=== PATIENT | male | born 1995 | race Two or more races ===

== ENCOUNTER 2020-11-19 12:26 | Emergency (ER) | payer MEDICAID, OTHER ==
[~2020-11-19] VITALS: Ht 185.4 cm; Wt 70.0 kg
[2020-11-19] MEDS ORDERED: KETOROLAC 60MG/2ML VIAL IM ONE (13:00)
[2020-11-19 13:27] LABS: HEMOGLOBIN. 14.9 g/dL (14.0-18.0); MEAN CORPUSCULAR HEMOGLOBIN 30.2 pg (28.0-32.0); MEAN CORPUSCULAR VOLUME 89.5 fL (80.0-94.0); MEAN PLATELET VOLUME 6.9 fl (7.4-10.4); PLATELET 298 x1000/uL (130-400); RED BLOOD CELL COUNT 4.92 mill/uL (4.7-6.1); RED CELL DISTRIBUTION WIDTH 13.5 % (11.6-14.6)
[2020-11-19] MEDS ORDERED: VISCOUS LIDOCAINE 2% 15 ML UDC MM NR (13:30)
[2020-11-19 13:37] LABS: CHLORIDE 106 mEq/L (98-107)
[2020-11-19 13:44] LABS: PLATELET ESTIMATE NORMAL
[2020-11-19] MEDS ORDERED: LIDOCAINE HCL 2% JELLY 5ML MM NR (14:15)
[2020-11-19] MEDS ORDERED: NEOM28.36 TP (16:16)
[2020-11-19 16:25] VITALS: BP 130/75
== END 2020-11-19 16:28 | disposition home or self-care (01) ==
LOC: ER 12:26
DX: K60.2 Anal fissure, unspecified (principal)
CPT/HCPCS: 36415; 80048; 85025; 96372; 99283; J1885